=== PATIENT | female | born 1995 | race Two or more races ===

== ENCOUNTER 2018-02-26 08:34 | Outpatient (CLI) | payer OTHER ==
--- NOTE | 2018-02-27 18:15 | MRI Report ---
Procedure Date: 02/26/2018 Accession Number: [id number] / [id number] Procedure: MRI - Knee RT W/O CPT Code: FULL RESULT: EXAM: RIGHT KNEE MRI WITHOUT CONTRAST EXAM DATE: 02/26/2018 09:32 AM. CLINICAL HISTORY: Pain in right knee. COMPARISON: None. TECHNIQUE: Multiplanar, multisequence T1-weighted and fluid-sensitive sequences of the knee without contrast. Other: None. FINDINGS: Bones: Tiny subchondral area of increased T2 signal at the lateral femoral condyle. Medial compartment is relatively normal. Patellofemoral joint also unremarkable. Articular Cartilage: Some mild global articular cartilaginous thinning at the medial and lateral femoral condyles. No focal cartilaginous defects. Medial Meniscus: Posterior horn of the medial meniscus is irregular and there also appears to be a focal attenuation or tear through the posterior medial meniscal root. Medial meniscus is also subluxed out of the joint somewhat. Series 501 images 8 through 11. Lateral Meniscus: The lateral meniscus is intact. Cruciate Ligaments: PCL is normal, ACL graft is intact and normal. Collateral Ligaments: The medial collateral and lateral collateral ligamentous structures are intact. Tendons: The quadriceps, patellar, semimembranosus, and popliteus tendons are unremarkable. Musculature: No edema or fatty atrophy. Other: No effusion. No popliteal cyst. No loose bodies. The medial and lateral retinacula are intact. Subcutaneous soft tissue swelling and edema. IMPRESSION: 1. Tiny subchondral area of increased T2 signal at the lateral femoral condyle. 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 2. Posterior horn medial meniscus is irregular and shows macerated tear near the posterior horn medial meniscal root. The medial meniscus also is partially subluxed out of the joint. 3. ACL graft is normal, PCL also unremarkable, lateral meniscus, collaterals appear unremarkable. Some subcutaneous soft tissue swelling and edema is present. [facility] MUSCULOSKELETAL RADIOLOGY SECTION
== END 2018-02-26 08:35 | disposition home or self-care (01) ==
LOC: DI 08:34
PROVIDERS: ATTEND Orthopaedic Surgery
DX: M94.261 Chondromalacia, right knee (principal); S83.241A Other tear of medial meniscus, current injury, right knee, initial encounter; R60.0 Localized edema

== ENCOUNTER 2018-05-11 06:10 | Day surgery (SDC) | payer OTHER ==
[2018-05-11] MEDS ORDERED: LACTATED RINGERS 1,000 ML IV ONE ×2 (06:30→11:17)
[2018-05-11] MEDS ORDERED: ceFAZolin 2 GM/50 ML 2 GM/50 ML BAG IV ONE (06:39)
--- NOTE | 2018-05-11 07:02 | ANESTHESIA ---
Pre-Anesthesia VS, & Labs - Diagnosis R ACL tear s/p reconstruction - Procedure R Revision Arthroscopic ACL, possible meniscus repair vs debridement Vital Signs: Temp Pulse Resp BP Pulse Ox 36.0 C L 69 15 129/79 97 05/11/18 06:30 05/11/18 06:30 05/11/18 06:30 05/11/18 06:30 05/11/18 06:30 Height 5 ft 4 in Weight (kg) 99.79 kg - NPO >8 hours - Is Patient ?: No - Lab Results Lab results reviewed: Yes Home Medications and Allergies Home Medications: Ambulatory Orders No Known Home Medications 05/03/18 No Known Home Medications 05/03/18 Allergies/Adverse Reactions: Allergies Allergy/AdvReac Type Severity Reaction Status Date / Time No Known Drug Allergies Allergy Verified 05/03/18 15:20 Anes History & Medical History - Anesthetic History Anesthesia Complications: reports: No previous complications Family history of Anesthesia Complications: Denies Family history of Malignant Hyperthermia: Denies - Medical History Cardiovascular: reports: None Pulmonary: reports: None Gastrointestinal: reports: None Urinary: reports: None Musculoskeletal: reports: Other (wisdom teeth extraction) Endocrine/Autoimmune: reports: None Skin: reports: None Smoking Status: Former smoker - Surgical History Orthopedic: ACL reconstruction Exam General: Alert, Oriented x3, Cooperative, No acute distress Dental: WNL Mouth Opening: Greater than 4 Fingerbreadths Neck Mobility: Normal Mallampati classification: I Thyromental Distance: 4-6 cm Respiratory: Lungs clear, Normal breath sounds, No respiratory distress, No accessory muscle use Cardiovascular: Regular rate Neurological: Normal speech Mental/Cognitive Status: Alert/Oriented X3 Plan Anesthesia Type: General, Femoral Block (possible PACU fem nerve block) Consent for Procedure(s) Verified and Reviewed: Yes Code Status: Attempt Resuscitation ASA classification: 2-Mild systemic disease Is this case an emergency?: No
[2018-05-11] MEDS ORDERED: EPINEPHrine 1 MG/ML AMP ONE (07:09)
[2018-05-11] MEDS ORDERED: BUPIVACAINE 0.25% PF 30 ML VIAL ONE (07:09)
[2018-05-11 07:22] LABS: HCG UR QUAL NEGATIVE
[2018-05-11] MEDS ORDERED: PROPOFOL 200 MG/20 ML VIAL IVP ONE (08:00)
[2018-05-11] MEDS ORDERED: KETOROLAC 30 MG/ML VIAL IVP ONE (08:00)
[2018-05-11] MEDS ORDERED: ACETAMINOPHEN 1,000 MG/100 ML 100 ML IV ONE (08:00)
[2018-05-11] MEDS ORDERED: DEXAMETHASONE 4 MG/ML VIAL IVP ONE (08:00)
[2018-05-11] MEDS ORDERED: ONDANSETRON 4 MG/2 ML VIAL IVP ONE (08:00)
[2018-05-11] MEDS ORDERED: ROCURONIUM 50 MG/5 ML VIAL IVP ONE (08:00)
[2018-05-11] MEDS ORDERED: HYDROmorphone 1 MG/ML SYRINGE IVP ONE (08:00)
[2018-05-11] MEDS ORDERED: LIDOCAINE-MPF 2% 5 ML VIAL IM ONE (08:00)
[2018-05-11] MEDS ORDERED: fentaNYL 100 MCG/2 ML VIAL IVP ONE (08:00)
[2018-05-11] MEDS ORDERED: BUPIVACAINE 0.25% PF 30 ML VIAL SUBQ ONE (08:14)
[2018-05-11] MEDS ORDERED: EPINEPHrine 1 MG/ML AMP IR ONE ×2 (08:14)
[2018-05-11] MEDS: HYDROmorphone 1 MG/ML CARPUJECT ONE ×2 (11:20→11:27)
[2018-05-11] MEDS ORDERED: oxyCODONE 5 MG TABLET PO PRN (11:22)
[2018-05-11] MEDS ORDERED: ONDANSETRON 4 MG/2 ML VIAL IVP PRN (11:22)
[2018-05-11] MEDS ORDERED: oxyCODONE 5 MG TABLET ONE (11:41)
--- NOTE | 2018-05-11 12:58 | XRAY Report ---
Reason: post op acl Procedure Date: 05/11/2018 Accession Number: [id number] / [id number] Procedure: XR - Knee 2 View RT CPT Code: FULL RESULT: EXAM: RIGHT KNEE RADIOGRAPHY EXAM DATE: 05/11/2018 11:49 AM. CLINICAL HISTORY: Post op acl. COMPARISON: KNEE RT W/O 02/26/2018 8:52 AM. TECHNIQUE: 3 views. FINDINGS: Bones: No fracture or suspicious osseous lesion. Joints: Postoperative changes from recent ACL repair. Proximal right tibial screw and small lateral distal femoral plate. A geographic rectangular lucency overlies proximal tibial metaphysis. Air and fluid are noted within right knee joint. Soft Tissues: Postoperative soft tissue air. IMPRESSION: Postoperative changes from recent ACL repair. [facility]
[2018-05-11] MEDS ORDERED: ONDANSETRON 4 MG/2 ML VIAL ONE (13:05)
[2018-05-11] MEDS ORDERED: HYDROmorphone 1 MG/ML CARPUJECT ONE (13:05)
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
[2018-05-11] MEDS ORDERED: ROPIVACAINE 0.5% PF 20 ML AMPULE ONE (13:41)
[2018-05-11 14:29] VITALS: BP 110/66
== END 2018-05-11 06:11 | disposition home or self-care (01) ==
LOC: SDS 06:10
PROVIDERS: ATTEND Orthopaedic Surgery
PROC: 0MRN47Z Replacement of Right Knee Bursa and Ligament with Autologous Tissue Substitute, Percutaneous Endoscopic Approach (ICD-10-PCS; 2018-05-11)
PROC: 0MSN4ZZ Reposition Right Knee Bursa and Ligament, Percutaneous Endoscopic Approach (ICD-10-PCS; 2018-05-11)
PROC: 0SBC4ZZ Excision of Right Knee Joint, Percutaneous Endoscopic Approach (ICD-10-PCS; principal; 2018-05-11 07:30)
DX: T84.410A Breakdown (mechanical) of muscle and tendon graft, initial encounter (principal); M23.331 Other meniscus derangements, other medial meniscus, right knee
CPT/HCPCS: 29881; 29888; 73560; 81025; A9270; C1713; J0131; J0690; J1170; J7120

== ENCOUNTER 2018-08-17 05:15 | Outpatient (CLI) | payer OTHER | END 2018-08-17 05:16 | disposition home or self-care (01) | LOC: EMS 05:15 | PROVIDERS: ATTEND Surgery | DX: S71.112A Laceration without foreign body, left thigh, initial encounter (principal); S81.012A Laceration without foreign body, left knee, initial encounter; S81.011A Laceration without foreign body, right knee, initial encounter; S61.412A Laceration without foreign body of left hand, initial encounter; S61.411A Laceration without foreign body of right hand, initial encounter; S51.812A Laceration without foreign body of left forearm, initial encounter; S51.811A Laceration without foreign body of right forearm, initial encounter; S80.12XA Contusion of left lower leg, initial encounter; S80.11XA Contusion of right lower leg, initial encounter; V47.0XXA Car driver injured in collision with fixed or stationary object in nontraffic accident, initial encounter; Y92.414 Local residential or business street as the place of occurrence of the external cause | CPT/HCPCS: A0425; A0427 ==

== ENCOUNTER 2019-03-29 11:48 | Outpatient (CLI) | payer OTHER ==
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
== END 2019-03-29 11:49 | disposition home or self-care (01) ==
LOC: DI 11:48
PROVIDERS: ATTEND Orthopaedic Surgery
DX: S83.8X1A Sprain of other specified parts of right knee, initial encounter (principal); R60.0 Localized edema; M25.461 Effusion, right knee; S83.411A Sprain of medial collateral ligament of right knee, initial encounter